=== PATIENT | female | born 1955 | race Two or more races ===

== ENCOUNTER 2023-05-11 05:53 | Day surgery (SDC) | payer MEDICARE, BC ==
[2023-05-05 15:31] LABS: BASOPHILS # (AUTO) 0.1 X10'3 (0-0.2); BASOPHILS % (AUTO) 0.9 % (0-1); EOSINOPHILS # (AUTO) 0.2 X10'3 (0-0.9); EOSINOPHILS % (AUTO) 3.2 % (0-6); LYMPHOCYTES # (AUTO) 2.1 X10'3 (1.1-4.8); LYMPHOCYTES % (AUTO) 33.2 % (21-51); MEAN CORPUSCULAR HGB CONC 33.4 g/dL (33.0-36.5); MEAN CORPUSCULAR VOLUME 89.8 FL (78-98); MEAN PLATELET VOLUME 8.5 FL (7.4-10.4); MONOCYTES # (AUTO) 0.6 X10'3 (0-0.9); MONOCYTES % (AUTO) 9.4 % (2-12); NEUTROPHILS # (AUTO) 3.4 X10'3 (1.8-7.7); NEUTROPHILS % (AUTO) 53.3 % (42-75); PRE OP HEMATOCRIT 41.6 % (35.0-45.0); PRE OP HEMOGLOBIN 13.9 g/dL (12.0-16.0); PRE OP PLATELET COUNT 219 X10'3 (140-440); PRE OP WHITE BLOOD COUNT 6.3 10'3 (4.8-10.8); RED BLOOD COUNT 4.63 X10'6 (4.20-5.60); RED CELL DISTRIBUTION WIDTH 13.7 % (11.5-14.5)
[2023-05-05 15:36] LABS: BILIRUBIN,URINE NEGATIVE (Neg); CLARITY,URINE CLEAR (Clear); COLOR,URINE YELLOW (Yellow); GLUCOSE, URINE NEGATIVE (Neg); KETONES,URINE NEGATIVE (Neg); LEUKOCYTE ESTERASE ,URINE NEGATIVE (Neg); NITRITES, URINE NEGATIVE (Neg); OCCULT BLOOD,URINE NEGATIVE (Neg); PH,URINE 6.5 (4.8-8.0); PROTEIN,URINE NEGATIVE (Neg); UROBILINOGEN,URINE 0.2 E.U/dL (0.2-1.0)
[2023-05-05 15:38] LABS: UA COLLECTION TYPE CLN CATCH MIDSTREAM
[2023-05-05 15:49] LABS: PRE OP INR 1.1 INR; PRE OP PROTIME 11.4 SECONDS (9.0-12.0)
[2023-05-05 15:51] LABS: ALBUMIN 3.9 G/DL (3.4-5.0); ALBUMIN/GLOBULIN RATIO 1.1 (1.1-1.5); ALKALINE PHOSPHATASE 68 IU/L (46-116); BLOOD UREA NITROGEN 11 MG/DL (7-18); BUN/CREATININE RATIO 13.3 (10.0-20.0); CALCIUM 9.4 MG/DL (8.5-10.1); CHLORIDE 107 MMOL/L (99-107); CREATININE 0.83 MG/DL (0.40-0.90); PRE OP ALT 25 U/L (30-65); PRE OP ANION GAP 8 (8-16); PRE OP AST 18 U/L (10-37); PRE OP BILIRUB, TOTAL 0.4 MG/DL (0.0-1.0); PRE OP GLUCOSE 96 MG/DL (70-104); PRE OP POTASSIUM 4.1 MMOL/L (3.4-5.1); PRE OP SODIUM 144 MMOL/L (135-145); TOTAL CARBON DIOXIDE 28.6 MMOL/L (24-32); TOTAL PROTEIN 7.4 G/DL (6.4-8.2); eGFR 69 ML/MIN
[2023-05-11] VITALS (9 sets, daily range): BP systolic 99–122; BP diastolic 58–72; PULSE 69–104; RESP 14–19; TEMP 98.5; O2SAT 95–100
[~2023-05-11] VITALS: Ht 152.4 cm; Wt 60.7 kg
[2023-05-11] MEDS: cefazolin 2gm/D5W 100mL 100 ML IV ONE (05:30)
[~2023-05-11 05:53] MED LIST: NO HOME MEDS
[2023-05-11] MEDS: famotidine 20mg tablet PO ONE (06:51)
[2023-05-11] MEDS: ringers solution, lacted 1,000 ML IV SCH ×2 (06:52→11:58)
[2023-05-11] MEDS ORDERED: LIDOcaine 1% w/EPI 1:100,000 inj. MDV 50 ML VIAL ONE (07:06)
[2023-05-11] MEDS ORDERED: BUPIVAcaine 0.5% inj/PF 0 ML ONE (07:06)
[2023-05-11] MEDS ORDERED: labetalol 20mg/4ml (5mg/ml) syringe IV PRN (08:20)
[2023-05-11] MEDS ORDERED: morphine 2 MG/ML inj. syringe IV PRN (08:20)
[2023-05-11] MEDS ORDERED: meperidine/PF 25mg/ml syringe IV PRN ×3 (08:20)
[2023-05-11] MEDS ORDERED: morphine 4 MG/ML inj SYRINge IV PRN (08:20)
[2023-05-11] MEDS ORDERED: proCHLORperazine 10 MG/2 ml inj IV PRN (08:20)
[2023-05-11] MEDS ORDERED: sevoflurane 250ml liquid IH ONE (08:20)
[2023-05-11] MEDS ORDERED: ondansetron/PF 4mg/2ml inj IV PRN (08:20)
[2023-05-11] MEDS ORDERED: enalaprilat dihydrate 2.5mg/2ml vial IV PRN (08:20)
[2023-05-11] MEDS ORDERED: MIDAZolam 1 MG/ML 5ML VIAL ONE (08:29)
[2023-05-11] MEDS ORDERED: fentaNYL/PF 50MCG/1 ML 2ML syringe ONE (08:29)
[2023-05-11] MEDS ORDERED: cloNIDine hcl/PF 100mcg/ml inj ONE (08:33)
[2023-05-11] MEDS ORDERED: propofol inj 20 ML IV ONE (08:56)
[2023-05-11] MEDS ORDERED: LIDOcaine 2% (20mg/ml) 5ml vial ONE (08:56)
[2023-05-11] MEDS ORDERED: dexamethasone sod phosphate 4mg/ml inj. ONE (08:56)
[2023-05-11] MEDS ORDERED: BUPIVAcaine/PF 7.5mg/ml (0.75%) 10ml vial ONE (08:56)
[2023-05-11] MEDS ORDERED: ROPIVAcaine 0.5% (5mg/ml) 30ml vial ONE (08:57)
[2023-05-11] MEDS: bacitracin 15gm ointment TP ONE (09:20)
[2023-05-11] MEDS ORDERED: acetaminophen 1,000mg/100ml IV 100 ML IV ONE (11:10)
[2023-05-11] MEDS ORDERED: ondansetron/PF 4mg/2ml inj ONE (11:11)
== END 2023-05-11 13:04 | disposition home or self-care (01) ==
LOC: PAS 05:53
PROVIDERS: ATTEND Podiatrist Foot & Ankle Surgery
DX: M20.32 Hallux varus (acquired), left foot (principal); M76.822 Posterior tibial tendinitis, left leg; I45.10 Unspecified right bundle-branch block; G89.18 Other acute postprocedural pain; Z79.899 Other long term (current) drug therapy; Z79.01 Long term (current) use of anticoagulants
CPT/HCPCS: 27691; 28300; 28750; 36415; 64445; 64447; 71046; 73620; 80053; 81003; 82948; 85025; 85610; 85730; 93005; A6222; C1713; J0131; J0690; J0735; J1100; J2250; J2405; J2704; J2795; J3010; J3490; J7030; J7120; Z7506; Z7508; Z7512; 76000; A4618; A6253; A6446; A6449; A6455; A7000; S0020

== ENCOUNTER 2023-08-18 06:40 | Day surgery (SDC) | payer MEDICARE, BC ==
[2023-08-12 11:33] LABS: BASOPHILS # (AUTO) 0.1 X10'3 (0-0.2); BASOPHILS % (AUTO) 1.2 % (0-1); EOSINOPHILS # (AUTO) 0.1 X10'3 (0-0.9); EOSINOPHILS % (AUTO) 1.7 % (0-6); LYMPHOCYTES # (AUTO) 1.4 X10'3 (1.1-4.8); MEAN CORPUSCULAR HEMOGLOBIN 30.4 PG (27.0-31.0); MEAN CORPUSCULAR HGB CONC 33.7 g/dL (33.0-36.5); MEAN CORPUSCULAR VOLUME 90.1 FL (78-98); MEAN PLATELET VOLUME 9.1 FL (7.4-10.4); MONOCYTES # (AUTO) 0.4 X10'3 (0-0.9); MONOCYTES % (AUTO) 7.7 % (2-12); NEUTROPHILS # (AUTO) 2.9 X10'3 (1.8-7.7); NEUTROPHILS % (AUTO) 59.4 % (42-75); PRE OP HEMATOCRIT 39.9 % (35.0-45.0); PRE OP HEMOGLOBIN 13.4 g/dL (12.0-16.0); PRE OP PLATELET COUNT 187 X10'3 (140-440); PRE OP WHITE BLOOD COUNT 4.8 10'3 (4.8-10.8); RED BLOOD COUNT 4.42 X10'6 (4.20-5.60); RED CELL DISTRIBUTION WIDTH 13.1 % (11.5-14.5)
[2023-08-12 11:40] LABS: BILIRUBIN,URINE NEGATIVE (Neg); CLARITY,URINE CLEAR (Clear); COLOR,URINE YELLOW (Yellow); GLUCOSE, URINE NEGATIVE (Neg); KETONES,URINE NEGATIVE (Neg); LEUKOCYTE ESTERASE ,URINE TRACE (Neg); NITRITES, URINE NEGATIVE (Neg); OCCULT BLOOD,URINE NEGATIVE (Neg); PROTEIN,URINE NEGATIVE (Neg); UROBILINOGEN,URINE 0.2 E.U/dL (0.2-1.0)
[2023-08-12 11:44] LABS: SQUAMOUS EPITHELIAL CELL,UR FEW /LPF (FEW); UA COLLECTION TYPE NON-SPECIFIED
[2023-08-12 11:45] LABS: AMORPHOUS PHOSPHATES 1+; BACTERIA,URINE FEW /HPF (Neg); RBC,URINE 0-2 /HPF (0-2); WBC,URINE 0-4 /HPF (0-4)
[2023-08-12 11:49] LABS: ALBUMIN 3.8 G/DL (3.4-5.0); ALBUMIN/GLOBULIN RATIO 1.2 (1.1-1.5); ALKALINE PHOSPHATASE 75 IU/L (46-116); BLOOD UREA NITROGEN 14 MG/DL (7-18); BUN/CREATININE RATIO 19.4 (10.0-20.0); CALCIUM 9.1 MG/DL (8.5-10.1); CHLORIDE 106 MMOL/L (99-107); CREATININE 0.72 MG/DL (0.40-0.90); PRE OP ALT 27 U/L (30-65); PRE OP ANION GAP 9 (8-16); PRE OP AST 16 U/L (10-37); PRE OP BILIRUB, TOTAL 0.4 MG/DL (0.0-1.0); PRE OP GLUCOSE 95 MG/DL (70-104); PRE OP SODIUM 141 MMOL/L (135-145); TOTAL CARBON DIOXIDE 25.8 MMOL/L (24-32); eGFR 81 ML/MIN
[2023-08-12 12:25] LABS: PRE OP PROTIME 10.9 SECONDS (9.0-12.0)
[~2023-08-18] VITALS: Ht 154.9 cm; Wt 59.0 kg
[2023-08-18] VITALS (9 sets, daily range): BP systolic 114–136; BP diastolic 58–83; PULSE 73–90; RESP 9–18; TEMP 98.4; O2SAT 93–100
[2023-08-18] MEDS: cefazolin 2gm/D5W 100mL 100 ML IV ONE (05:52)
[~2023-08-18 06:40] MED LIST changes: +ringers solution, lacted 1,000 ML IV SCH
[2023-08-18] MEDS: famotidine 20mg tablet PO ONE (07:33)
[2023-08-18] MEDS ORDERED: cloNIDine hcl/PF 100mcg/ml inj ONE (08:23)
[2023-08-18] MEDS ORDERED: sevoflurane 250ml liquid IH ONE (08:24)
[2023-08-18] MEDS ORDERED: fentaNYL/PF 50MCG/1 ML 2ML syringe ONE (08:30)
[2023-08-18] MEDS ORDERED: midazolam 1 mg/ML 2ml injection ONE (08:34)
[2023-08-18] MEDS ORDERED: ROPIVAcaine 0.5% (5mg/ml) 30ml vial ONE (08:58)
[2023-08-18] MEDS ORDERED: rocuronium 10mg/ml inj IV ONE (08:58)
[2023-08-18] MEDS ORDERED: LIDOcaine 2% (20mg/ml) 5ml vial ONE (08:58)
[2023-08-18] MEDS ORDERED: propofol inj 20 ML IV ONE ×2 (08:58→10:08)
[2023-08-18] MEDS ORDERED: dexamethasone sod phosphate 4mg/ml inj. ONE (08:58)
[2023-08-18] MEDS ORDERED: ePHEDrine 50MG/ML INJ. ONE (08:59)
[2023-08-18] MEDS ORDERED: 0.9 % SODIUM CHLORIDE 10 ML VIAL ONE (08:59)
[2023-08-18] MEDS ORDERED: ondansetron/PF 4mg/2ml inj ONE (09:09)
[2023-08-18] MEDS ORDERED: neostigmine methylsulfate 1 MG/ML 10ml vial ONE (09:41)
[2023-08-18] MEDS ORDERED: glycopyrrolate 0.2mg/ml inj ONE (09:41)
[2023-08-18] MEDS: BUPIVAcaine 2.5mg/ml inj 50ml vial (contains preservative) ONE (09:44)
[2023-08-18] MEDS: bacitracin 15gm ointment TP ONE (09:45)
[2023-08-18] MEDS ORDERED: morphine 10mg/ml inj. ONE (09:47)
[2023-08-18] MEDS ORDERED: morphine 2 MG/ML inj. syringe IV PRN (10:30)
[2023-08-18] MEDS ORDERED: ondansetron/PF 4mg/2ml inj IV PRN (10:30)
[2023-08-18] MEDS ORDERED: ringers solution, lacted 1,000 ML IV SCH (10:30)
[2023-08-18] MEDS ORDERED: meperidine/PF 25mg/ml syringe IV PRN ×3 (10:30)
[2023-08-18] MEDS ORDERED: acetaminophen 1,000mg/100ml IV 100 ML IV ONE (10:30)
[2023-08-18] MEDS ORDERED: proCHLORperazine 10 MG/2 ml inj IV PRN (10:30)
[2023-08-18] MEDS ORDERED: morphine 4 MG/ML inj SYRINge IV PRN (10:30)
== END 2023-08-18 11:48 | disposition home or self-care (01) ==
LOC: PAS 06:40
PROVIDERS: ATTEND Podiatrist Foot & Ankle Surgery
DX: T84.84XA Pain due to internal orthopedic prosthetic devices, implants and grafts, initial encounter (principal); G89.18 Other acute postprocedural pain; Z90.710 Acquired absence of both cervix and uterus; Z98.890 Other specified postprocedural states; Y79.2 Prosthetic and other implants, materials and accessory orthopedic devices associated with adverse incidents; Y92.89 Other specified places as the place of occurrence of the external cause
CPT/HCPCS: 20680; 36415; 64450; 71045; 73620; 80053; 81001; 82948; 85025; 85610; 85730; 87088; A4215; A4618; A6222; A6253; A6402; A6449; A6455; A7000; J0690; J0735; J1100; J2001; J2250; J2270; J2405; J2704; J2710; J2795; J3010; J3490; J7030; J7120; Z7506; Z7508; Z7512; Z7610; J2274